=== PATIENT | female | born 1975 | race Caucasian/White ===

== ENCOUNTER 2016-12-19 13:25 | Emergency (ER) | payer OTHER ==
[~2016-12-19] VITALS: Ht 175.3 cm; Wt 90.6 kg
[2016-12-19 13:35] VITALS: TEMP 37; Ht 175.3 cm; Wt 90.6 kg
--- NOTE | 2016-12-19 14:33 | DIAGNOSTIC IMAGING REPORT ---
LEFT RIBS UNILATERAL WITH PA CHEST CLINICAL HISTORY: Lifting. Popping and pain L ribs pain COMPARISON STUDY: None FINDINGS: Negative left ribs. Negative chest. No evidence pneumothorax. IMPRESSION: Negative study Electronically signed by: Henry Tucker M.D. 12/19/2016 2:31 PM Dictated Date/Time: 12/19/2016 2:30 PM
[2016-12-19] MEDS ORDERED: TRAMADOL HCL 50 MG TAB PO STA (14:57)
[2016-12-19] MEDS ORDERED: TRAM-10 PO (15:00)
[2016-12-19 15:18] VITALS: BP 134/88; PULSE 72; O2SAT 96
--- NOTE | 2016-12-19 23:01 | EMERGENCY ROOM VISIT NOTE ---
ED Visit Note First contact with patient: 13:37 Chief Complaint: Left rib pain. History of Present Illness: Ms. Mejia is a 41-year-old white female who ambulates into the ED accompanied by female friend complaining of left lateral and anterior rib pain. Patient reports yesterday afternoon she was sliding a large refrigerator out of her truck. The refrigerator started to turn and she pulled harder to control the refrigerator and felt a popping sensation under her left breast. This was followed immediately by a severe sharp pain. Since that time her pain has been constant. Currently she describes her discomfort as a sharp sensation. She places her discomfort over ribs 5 and 6 on the left side of the chest from just lateral to the sternal border to under the breast. She rates her discomfort at 6/10. The pain is nonradiating. The pain worsens with palpation, deep inspiration and abduction and extension of the left shoulder. She has not identified any alleviating factors related to the pain. She reports she's been using Tylenol without relief of her discomfort. She denies any associated symptoms including fevers, chills, sweats, skin eruptions, skin color changes, cough, wheezing, shortness of breath, palpitations, abdominal pain, nausea, vomiting, decreased appetite, urinary symptoms, hematuria, back/flank pain. Review of Systems: As noted above in history of present illness. 8 body systems were reviewed and found to be negative as noted above. Past Medical History: Unspecified foot surgery. Current Medications: Patient denies. Allergies to Medications: Ibuprofen. Social History: Patient is currently employed; she feels safe in her home environment; she admits to tobacco use and denies alcohol use. Physical Examination: Vital Signs: Date Time Temp Pulse Resp B/P (MAP) Pulse Ox O2 Delivery O2 Flow Rate FiO2 12/19/16 15:18 72 18 134/88 96 12/19/16 13:35 37.0 81 18 144/73 100 Room Air GENERAL: 41-year-old female in mild to moderate distress due to pain, nontoxic- appearing, afebrile and hemodynamically stable. NEUROLOGICAL: Awake, alert and oriented to person, place and time. Answering questions appropriately and following commands. Normal gait. Good hand eye coordination. No focal motor or sensory deficits. SKIN: Warm, dry and pink. No soft tissue eruptions or trauma noted. BACK: No tenderness over the bony cervical, thoracic or lumbar spine. No tenderness throughout the paraspinous muscles. No palpable spasm. Full range of motion of the cervical spine. No CVA tenderness. THORAX: Lungs sounds are clear to auscultation and equal bilaterally with symmetrical chest wall. No wheezing, rales or rhonchi. Moderate to severe tenderness over the anterior and left lateral thorax in the areas of ribs 5 and 6. Do not appreciate any bony deformity, bony crepitus, swelling, ecchymosis or subcutaneous air. HEART: Regular rate and rhythm. No gallops, rubs or murmurs are appreciated. ABDOMEN: Flat, soft and nontender. Positive bowel sounds in all quadrants. No guarding, rigidity or organomegaly. ED Course: Patient is assessed as noted above. Patient's medication list was reviewed. Patient received 50 mg of Ultram by mouth for pain per PA Chest and Left Rib Series: Were read by myself and the radiologist showing no acute infiltrates, effusions or pneumothorax. Normal heart silhouette. No bony rib fractures. Patient was placed in a rib belt. Patient was educated about today's findings and instructed on her treatment plan ; she verbalizes understanding and agreement with this plan. Clinical Impression: Left sided rib pain. Decision-Making: Initially my differential diagnosis I considered costochondritis, rib fracture, pneumothorax, pneumonia and other causes. Disposition: Patient discharged home in stable condition accompanied by female friends; prior to departure she was reassessed and subjectively reported she was feeling the same. Plan: Comfort measures including rest, ice, rib belt and a prescription for Ultram were discussed with the patient. Patient was encouraged to do deep breathing exercises during the day. Patient was encouraged to avoid tobacco use. Patient was encouraged to follow-up with her PCP if no better in 3-4 days. Patient was encouraged to return to the ED for worsening/uncontrolled pain, shortness of breath, fevers, coughing up blood or any new/concerning symptoms.
== END 2016-12-19 15:19 | disposition home or self-care (01) ==
LOC: C.EDB 13:26
DX: R07.81 Pleurodynia (principal); X50.1XXA Overexertion from prolonged static or awkward postures, initial encounter; Z72.0 Tobacco use

== ENCOUNTER 2017-06-17 16:28 | Emergency (ER) | payer OTHER ==
[~2017-06-17] VITALS: Ht 175.3 cm; Wt 90.4 kg
[~2017-06-17 16:28] MED LIST: TRAM-10 PO
[2017-06-17 16:30] VITALS: TEMP 36.8; Ht 175.3 cm; Wt 90.4 kg
[2017-06-17] MEDS ORDERED: ACET-1256 PO (16:44)
[2017-06-17] MEDS ORDERED: KETOROLAC TROMETHAMINE 60 MG/2 ML VIAL IM STA (16:48)
--- NOTE | 2017-06-17 17:40 | EMERGENCY ROOM VISIT NOTE ---
ED Visit Note First contact with patient: 16:35 CHIEF COMPLAINT: left side low back pain, right heel pain from fall HISTORY OF PRESENT ILLNESS: This 41-year-old female patient presents to the emergency department ambulatory, complaining of pain in the low back on the left and right heel which began after a fall 3 days ago. The patient states she was walking outside, when her right foot slipped on the ice. She states she attempted to stop herself from falling, and must have struck her right heel on the ground. She states when she did finally fall, she landed sideways, twisting her low back. She states she landed on her left hip. The patient is now experiencing significant left-sided low back pain which is constant. She is unable to get comfortable. The patient has intermittently been taking Tylenol without relief of her pain. The patient notes the pain as sharp and stabbing in both areas and a 8/10. The patient states her right foot hurts constantly, but is worse with walking. She states when she is walking, it feels like there is a nail going through her heel. She does report a history of problems with the right foot, and states she experienced a crush injury several years ago, and has had several surgeries to that foot due to these injuries. The patient is having difficulty sitting or lying flat due to her back pain. She is unable to find a comfortable position. The patient has been using a heating pad without relief. The patient denies any loss of control of their bowel or bladder functions. There has been no leg numbness or weakness, and no change in sensation. No nausea or vomiting or abdominal pain. No chest pain or shortness of breath. The patient has not had prior back injuries. No dysuria or increased urinary frequency. REVIEW OF SYSTEMS: A 10 system review of systems was performed with positives and pertinent negatives listed in the history of present illness. All other systems were reviewed and are negative. ALLERGIES: None MEDICATIONS: None PMH: Crush injury to the right foot SOCIAL HISTORY: The patient lives locally with family. She denies drug, alcohol use. She admits to smoking approximately 3 cigarettes per day PHYSICAL EXAM: VITALS: Vitals are noted on the nurse's note and reviewed by myself. Vital signs stable. GENERAL: This is a 41-year-old white female, in no acute distress, nondiaphoretic, well-developed well-nourished. SKIN: The skin was without rashes, erythema, edema, or bruising. Capillary refill less than 2 seconds. NECK: Supple without nuchal rigidity. No cervical spine tenderness. No paraspinous muscle tenderness. HEART: Regular rate and rhythm without murmurs gallops or rubs. LUNGS: Clear to auscultation bilaterally without wheezes, rales or rhonchi. ABDOMEN: Positive bowel sounds x 4. Normal tympanic percussion. Soft, nontender, without masses or organomegaly. Cervantes sign negative. MUSCULOSKELETAL: No muscle atrophy, erythema, or edema noted of the back. There is tenderness over the lumbar spinous processes. There is tenderness over the paraspinous muscles on the left. The discomfort does extend down into the sacrum and coccyx and to the left hip. There is no tenderness over the thoracic spine or paraspinous muscles. There are mild muscle spasms present. The patient is slow to move around with maximum tenderness with any positional change. Negative straight leg raise test. There is no erythema, edema, or laceration over the left heel. Dorsal pedal pulses 2+. There is some moderate tenderness in the mid heel on palpation. The patient has full range of motion of the ankle in the foot. NEURO: Patient was alert and oriented to person place and time. Normal sensation to light and sharp touch. Deep tendon reflexes 2+ in the lower extremities. Dorsalis pedis pulse 2+ bilaterally. Strength 5/5 and equal in the bilateral lower extremities. RADIOLOGY: L-SPINE MIN 4 VIEWS ROUTINE, SACRUM COCCYX MIN 2 VIEWS HISTORY: 41 years-old Female fall, left low back pain acute low back pain status post fall COMPARISON: Lumbar spine radiographs 06/14/2009 TECHNIQUE: 5 views of the lumbar spine and 3 views of the sacrum and coccyx FINDINGS: LUMBAR SPINE: 5 lumbar type vertebral segments are present. No spondylolysis or spondylolisthesis. Mild intervertebral disc space narrowing and facet arthrosis at L5-S1. Minimal multilevel endplate spurring. No acute fracture or subluxation. Soft tissues are unremarkable. SACRUM/COCCYX: Mild degenerative changes of the SI joints. No acute fracture or subluxation. The imaged pelvis appears intact. IMPRESSION: 1. No acute fracture or subluxation. 2. Mild degenerative changes as above. The above report was generated using voice recognition software. It may contain grammatical, syntax or spelling errors. Electronically signed by: Abhinav Snyder M.D. 06/17/2017 5:55 PM Dictated Date/Time: 06/17/2017 5:53 PM L-SPINE MIN 4 VIEWS ROUTINE, SACRUM COCCYX MIN 2 VIEWS HISTORY: 41 years-old Female fall, left low back pain acute low back pain status post fall COMPARISON: Lumbar spine radiographs 06/14/2009 TECHNIQUE: 5 views of the lumbar spine and 3 views of the sacrum and coccyx FINDINGS: LUMBAR SPINE: 5 lumbar type vertebral segments are present. No spondylolysis or spondylolisthesis. Mild intervertebral disc space narrowing and facet arthrosis at L5-S1. Minimal multilevel endplate spurring. No acute fracture or subluxation. Soft tissues are unremarkable. SACRUM/COCCYX: Mild degenerative changes of the SI joints. No acute fracture or subluxation. The imaged pelvis appears intact. IMPRESSION: 1. No acute fracture or subluxation. 2. Mild degenerative changes as above. The above report was generated using voice recognition software. It may contain grammatical, syntax or spelling errors. Electronically signed by: Abhinav Snyder M.D. 06/17/2017 5:55 PM Dictated Date/Time: 06/17/2017 5:53 PM L HIP UNILATERAL 2 VIEWS CLINICAL HISTORY: Left hip pain following fall. COMPARISON: None FINDINGS: Alignment of the left hip is anatomic. No acute fracture is identified. Left hip joint space is preserved. There is minimal osteophytosis of the acetabulum. IMPRESSION: No acute fracture or dislocation of the left hip. Electronically signed by: Sandip Thompson M.D. 06/17/2017 5:50 PM Dictated Date/Time: 06/17/2017 5:50 PM R HEEL MIN 2 VIEWS CLINICAL HISTORY: Right heel pain following fall. COMPARISON: Right heel radiographs February 12, 2016. FINDINGS: Cannulated screw within the right calcaneus is intact. There is mild plantar calcaneal spurring. There is no acute right calcaneal fracture. A band of sclerosis within the posterior calcaneus is unchanged. This may reflect an old osteotomy. There is an os trigonum. 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 IMPRESSION: 1. No acute right calcaneal fracture. 2. Stable postoperative findings within the right calcaneus with cannulated screw and band of sclerosis which could reflect a previous osteotomy. Electronically signed by: Sandip Thompson M.D. 06/17/2017 5:53 PM Dictated Date/Time: 06/17/2017 5:51 PM EMERGENCY DEPARTMENT COURSE: Patient was seen and evaluated as above. She was given 60 mg IM Toradol. She did note mild improvement in her pain, however states she continues to experience the spasms. X-rays were obtained as outlined above. No significant acute findings noted. I did review all findings with the patient at bedside. I do suspect multiple contusions of the patient's back and right heel related to the fall. I do feel the patient is experiencing back spasms, again related to the fall. I discussed treatment options with the patient. She does not normally tolerate NSAIDs well, as she states they make her nauseated. The patient will be started on a course of steroids and muscle relaxers. I advised her to get plenty of rest and avoid overexerting herself. Discharge instructions were reviewed, and the patient was discharged home in good condition. I attest that I have personally reviewed the patient's current medication list. Patient was found to have normal blood pressure on screening and does not require follow-up. DIFFERENTIAL DIAGNOSIS: Sprain, strain, fracture, contusion, heel spur, muscle spasms, malignancy, and others DIAGNOSIS: Lumbar strain, heel contusion Current/Historical Medications Scheduled Cyclobenzaprine Hcl (Flexeril), 5-10 MG PO TID Methylprednisolone (Medrol Dosepak), 0 PO DAILY Scheduled PRN Acetaminophen (Tylenol), 1,000 MG PO Q6 PRN for Pain Allergies Coded Allergies: Ibuprofen (Verified Adverse Reaction, Unknown, GI SYMPTOMS, 02/12/16) Vital Signs Date Time Temp Pulse Resp B/P (MAP) Pulse Ox O2 Delivery O2 Flow Rate FiO2 06/17/17 16:30 36.8 87 16 130/80 98 Room Air Medications Administered Medications (Trade) Dose Ordered Sig/Joon Route Start Time Stop Time Status Last Admin Dose Admin Ketorolac Tromethamine (Toradol Inj) 60 mg NOW STAT IM 06/17/17 16:48 06/17/17 16:51 DC 06/17/17 17:03 60 MG Departure Information Impression Primary Impression: Strain of lumbar region Additional Impression: Contusion of right heel Dispostion Home / Self-Care Condition GOOD Prescriptions Cyclobenzaprine Hcl (FLEXERIL) 5 Mg Tab 5-10 MG PO TID, #20 TAB PRN Prov: Amarilys Galvan PA-C 06/17/17 Methylprednisolone (MEDROL DOSEPAK) 4 Mg Jose 0 PO DAILY, #1 PKT Prov: Amarilys Galvan PA-C 06/17/17 Referrals No Doctor, Assigned (PCP) Patient Instructions ED Contusion Back, ED Contusion Foot, ED Neck Back Pain [facility] Additional Instructions You have been treated in the Emergency Department for Back and heel contusions. You have been prescribed Flexeril (cyclobenzaprine) 1-2 tabs orally, three times per day. Do NOT exceed 30 mg (6 tabs) per day. Take your first dose at bedtime as it can make you drowsy. Always take all medications as prescribed. You have been prescribed a Medrol Dosepak. This is a steroid which will help decrease your inflammation, redness, and itch. Take the medicine as prescribed. Take the ENTIRE 6 day course of the steroids. Use ice on the heel to help with inflammation and pain. Use a heating pad to help settle spasms within the back. For pain control, you can use the following [id number] medicines (if >12 yo): Ibuprofen(Motrin, Advil) may be used for fever or pain. Use 600mg every six hours as needed. Take with food. Avoid using more than 2400mg in a 24 hour period. Do not use 2400mg per day for more than three consecutive days without physician direction. Prolonged inappropriate use can lead to stomach upset or ulcers. Do not take this medication while taking Steroids such as Medrol Dosepak. (AND/OR) Acetaminophen(Tylenol) may be used for fever or pain. Use 1000mg every six hours as needed. Avoid using more than 3000mg in a 24 hour period. If this is an acute injury, ice can be applied to the area of pain for the first 3 days to help decrease pain and inflammation. After the first 3 days, a heating pad can be used over the area for continued soothing relief. You should schedule a follow-up appointment in 2-3 days with your Primary Care Provider for further evaluation and treatment of your back pain. Return to the Emergency Department if your current symptoms worsen despite treatment course outlined above, or if you develop any of the following symptoms : intractable pain despite aforementioned treatment course, loss of control of your bowel or bladder, numbness or tingling in your groin, or development of a fever. Problem Qualifiers Primary Impression: Strain of lumbar region Encounter type: initial encounter Qualified Codes: S39.012A - Strain of muscle, fascia and tendon of lower back, initial encounter Additional Impression: Contusion of right heel Encounter type: initial encounter Qualified Codes: S90.31XA - Contusion of right foot, initial encounter
--- NOTE | 2017-06-17 17:52 | DIAGNOSTIC IMAGING REPORT ---
L HIP UNILATERAL 2 VIEWS CLINICAL HISTORY: Left hip pain following fall. COMPARISON: None FINDINGS: Alignment of the left hip is anatomic. No acute fracture is identified. Left hip joint space is preserved. There is minimal osteophytosis of the acetabulum. IMPRESSION: No acute fracture or dislocation of the left hip. Electronically signed by: Sandip Thompson M.D. 06/17/2017 5:50 PM Dictated Date/Time: 06/17/2017 5:50 PM
--- NOTE | 2017-06-17 17:54 | DIAGNOSTIC IMAGING REPORT ---
R HEEL MIN 2 VIEWS CLINICAL HISTORY: Right heel pain following fall. COMPARISON: Right heel radiographs February 12, 2016. FINDINGS: Cannulated screw within the right calcaneus is intact. There is mild plantar calcaneal spurring. There is no acute right calcaneal fracture. A band of sclerosis within the posterior calcaneus is unchanged. This may reflect an old osteotomy. There is an os trigonum. 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 IMPRESSION: 1. No acute right calcaneal fracture. 2. Stable postoperative findings within the right calcaneus with cannulated screw and band of sclerosis which could reflect a previous osteotomy. Electronically signed by: Sandip Thompson M.D. 06/17/2017 5:53 PM Dictated Date/Time: 06/17/2017 5:51 PM
--- NOTE | 2017-06-17 17:57 | DIAGNOSTIC IMAGING REPORT ---
L-SPINE MIN 4 VIEWS ROUTINE, SACRUM COCCYX MIN 2 VIEWS HISTORY: 41 years-old Female fall, left low back pain acute low back pain status post fall COMPARISON: Lumbar spine radiographs 06/14/2009 TECHNIQUE: 5 views of the lumbar spine and 3 views of the sacrum and coccyx FINDINGS: LUMBAR SPINE: 5 lumbar type vertebral segments are present. No spondylolysis or spondylolisthesis. Mild intervertebral disc space narrowing and facet arthrosis at L5-S1. Minimal multilevel endplate spurring. No acute fracture or subluxation. Soft tissues are unremarkable. SACRUM/COCCYX: Mild degenerative changes of the SI joints. No acute fracture or subluxation. The imaged pelvis appears intact. IMPRESSION: 1. No acute fracture or subluxation. 2. Mild degenerative changes as above. The above report was generated using voice recognition software. It may contain grammatical, syntax or spelling errors. Electronically signed by: Abhinav Snyder M.D. 06/17/2017 5:55 PM Dictated Date/Time: 06/17/2017 5:53 PM
[2017-06-17] MEDS ORDERED: CYCL5TAB PO (18:07)
[2017-06-17] MEDS ORDERED: METH4PAK PO (18:07)
[2017-06-17 18:13] VITALS: BP 138/90; PULSE 84; O2SAT 96
== END 2017-06-17 18:16 | disposition home or self-care (01) ==
LOC: C.EDB 16:29 → C.EDD 18:16
DX: S39.012A Strain of muscle, fascia and tendon of lower back, initial encounter (principal); S90.31XA Contusion of right foot, initial encounter; W00.0XXA Fall on same level due to ice and snow, initial encounter; Y92.018 Other place in single-family (private) house as the place of occurrence of the external cause; F17.210 Nicotine dependence, cigarettes, uncomplicated